=== PATIENT | female | born 1945 | race Caucasian/White ===

== ENCOUNTER 2018-06-26 15:15 | Emergency (ER) | payer MEDICARE, BC ==
[~2018-06-26] VITALS: Ht 152.4 cm; Wt 59.0 kg
--- NOTE | 2018-06-26 15:39 | PHYS DOC ---
Past Medical History Alcohol Use: None Drug Use: None Adult General Chief Complaint Chief Complaint: ANIMAL BITE HPI HPI Patient is a 72 year old female who presents with dog bite to the face. This happened within an hour prior to arrival. Dog was the neighbors dog. Uncertain as to dog's vaccine status. Animal control has been notified. Patient reports her last tetanus vaccine was greater than 5 years ago. She reports mild to moderate pain.[] Review of Systems Review of Systems Constitutional: Denies fever or chills [] Eyes: Denies change in visual acuity, redness, or eye pain [] HENT: Denies nasal congestion or sore throat [] Respiratory: Denies cough or shortness of breath [] Cardiovascular: No chest pain or palpitations[] GI: Denies abdominal pain, nausea, vomiting, bloody stools or diarrhea [] : Denies dysuria or hematuria [] Musculoskeletal: Denies back pain or joint pain [] Integument: Denies rash or skin lesions [] Neurologic: Denies headache, focal weakness or sensory changes [] Endocrine: Denies polyuria or polydipsia [] All other systems were reviewed and found to be within normal limits, except as documented in this note. Current Medications Current Medications Current Medications Medications (Trade) Dose Ordered Sig/Adrienne Start Time Stop Time Status Last Admin Dose Admin Ampicillin Sodium/ Sulbactam Sodium 1.5 gm/Sodium Chloride 50 ml @ 100 mls/hr 1X ONCE 06/26/18 15:45 06/26/18 16:14 DC 06/26/18 15:35 100 MLS/HR Diphtheria/ Tetanus/Acell Pertussis (Boostrix) 0.5 ml ONCE ONCE 06/26/18 15:45 06/26/18 15:46 DC 06/26/18 16:02 0.5 ML Morphine Sulfate (Morphine Sulfate) 2 mg 1X ONCE 06/26/18 15:45 06/26/18 15:46 DC 06/26/18 15:49 2 MG Ondansetron HCl (Zofran) 4 mg 1X ONCE 06/26/18 15:45 06/26/18 15:46 DC 06/26/18 15:53 4 MG Allergies Allergies Allergies Coded Allergies Type Severity Reaction Last Updated Verified Sulfa (Sulfonamide Antibiotics) Allergy Intermediate 06/26/18 Yes phenobarbital Allergy Intermediate 06/26/18 Yes Physical Exam Physical Exam Constitutional: Well developed, well nourished, mild distress, non-toxic appearance. [] HENT: Patient's right face has a complex laceration along the cheek region with exposed fat and possibly exposed salivary gland. Second laceration/wound to the right lateral brow line region of her for head. Bilateral external ears normal, oropharynx moist, no oral exudates, nose normal. [] Eyes: PERRLA, EOMI, conjunctiva normal, no discharge. [] Neck: Normal range of motion, no tenderness, supple, no stridor. [] Cardiovascular:Heart rate regular rhythm, no murmur [] Lungs & Thorax: Bilateral breath sounds clear to auscultation [] Abdomen: Bowel sounds normal, soft, no tenderness, no masses, no pulsatile masses. [] Skin: Warm, dry, no erythema, no rash. [] Back: No tenderness, no CVA tenderness. [] Extremities: No tenderness, no cyanosis, no clubbing, ROM intact, no edema. [] Neurologic: Alert and oriented X 3, normal motor function, normal sensory function, no focal deficits noted. [] Psychologic: Affect normal, judgement normal, mood normal. [] Current Patient Data Vital Signs Vital Signs Date Time Temp Pulse Resp B/P (MAP) Pulse Ox O2 Delivery O2 Flow Rate FiO2 06/26/18 15:49 20 97 Nasal Cannula 2.0 06/26/18 15:24 98.7 76 180/77 (111) 98.7 Lab Values Laboratory Tests Test 06/26/18 15:36 White Blood Count 6.0 x10^3/uL (4.0-11.0) Red Blood Count 3.14 x10^6/uL (3.50-5.40) L Hemoglobin 8.2 g/dL (12.0-15.5) L Hematocrit 25.9 % (36.0-47.0) L Mean Corpuscular Volume 83 fL (79-100) Mean Corpuscular Hemoglobin 26 pg (25-35) Mean Corpuscular Hemoglobin Concent 32 g/dL (31-37) Red Cell Distribution Width 19.0 % (11.5-14.5) H Platelet Count 655 x10^3/uL (140-400) H Neutrophils (%) (Auto) 71 % (31-73) Lymphocytes (%) (Auto) 14 % (24-48) L Monocytes (%) (Auto) 9 % (0-9) Eosinophils (%) (Auto) 5 % (0-3) H Basophils (%) (Auto) 1 % (0-3) Neutrophils # (Auto) 4.3 x10^3uL (1.8-7.7) Lymphocytes # (Auto) 0.8 x10^3/uL (1.0-4.8) L Monocytes # (Auto) 0.5 x10^3/uL (0.0-1.1) Eosinophils # (Auto) 0.3 x10^3/uL (0.0-0.7) Basophils # (Auto) 0.1 x10^3/uL (0.0-0.2) Prothrombin Time 12.6 SEC (11.7-14.0) Prothrombin Time INR 1.0 (0.8-1.1) PTT 31 SEC (24-38) Sodium Level 141 mmol/L (136-145) Potassium Level 4.5 mmol/L (3.5-5.1) Chloride Level 106 mmol/L (98-107) Carbon Dioxide Level 27 mmol/L (21-32) Anion Gap 8 (6-14) Blood Urea Nitrogen 12 mg/dL (7-20) Creatinine 0.7 mg/dL (0.6-1.0) Estimated GFR (Cockcroft-Gault) 82.0 BUN/Creatinine Ratio 17 (6-20) Glucose Level 149 mg/dL (70-99) H Calcium Level 9.4 mg/dL (8.5-10.1) Total Bilirubin 0.3 mg/dL (0.2-1.0) Aspartate Amino Transferase (AST) 13 U/L (15-37) L Alanine Aminotransferase (ALT) 13 U/L (14-59) L Alkaline Phosphatase 112 U/L (46-116) Total Protein 6.5 g/dL (6.4-8.2) Albumin 3.2 g/dL (3.4-5.0) L Albumin/Globulin Ratio 1.0 (1.0-1.7) Ethyl Alcohol Level < 0 mg/dL (0-10) L Laboratory Tests 06/26/18 15:36 Laboratory Tests 06/26/18 15:36 EKG EKG [] Radiology/Procedures Radiology/Procedures [] Course & Med Decision Making Course & Med Decision Making Pertinent Labs and Imaging studies reviewed. (See chart for details) Medical decision making: This is a complex laceration with no ENT or plastics capability available at [facility]. [facility] was contacted Dr. Minaya graciously accepted the patient for the plastics service however plastic service was not operations dispatcher so Dr. Wallace was contacted from the ENT service and he accepted the patient as well.[] Dragon Disclaimer Dragon Disclaimer This electronic medical record was generated, in whole or in part, using a voice recognition dictation system. Departure Departure Impression: Primary Impression: Dog bite Disposition: 05 TRANSFER OTHER Condition: STABLE Problem Qualifiers Primary Impression: Dog bite Encounter type: initial encounter Qualified Codes: W54.0XXA - Bitten by dog , initial encounter KANDACE LE DO Jun 26, 2018 15:39
[2018-06-26] MEDS ORDERED: ONDANSETRON PF 4 MG/2 ML VIAL. IV ONE (15:45)
[2018-06-26] MEDS ORDERED: DIPHTH,PERTUSS(ACELL),TET TOX 0.5 ML DISP.SYRIN. VAX IM ONE (15:45)
[2018-06-26] MEDS ORDERED: MORPHINE SULFATE 4 MG/ML VIAL. IV ONE (15:45)
[2018-06-26] MEDS ORDERED: AMPICILLIN/SULBACTAM 1.5 GM in IV NORMAL SALINE 50ML 50 ML IV ONE (15:45)
[2018-06-26 16:22] LABS: BASO # 0.1 x10^3/uL (0.0-0.2); BASO % 1 % (0-3); EOS # 0.3 x10^3/uL (0.0-0.7); EOS % 5 % (0-3); HEMATOCRIT 25.9 % (36.0-47.0); HEMOGLOBIN 8.2 g/dL (12.0-15.5); LYMPH # 0.8 x10^3/uL (1.0-4.8); LYMPH % 14 % (24-48); MEAN CORPUSCULAR HEMOGLOBIN 26 pg (25-35); MEAN CORPUSCULAR HGB CONC 32 g/dL (31-37); MEAN CORPUSCULAR VOLUME 83 fL (79-100); MONO # 0.5 x10^3/uL (0.0-1.1); MONO % 9 % (0-9); NEUT # 4.3 x10^3uL (1.8-7.7); NEUT % 71 % (31-73); PLATELET COUNT 655 x10^3/uL (140-400); RED BLOOD COUNT 3.14 x10^6/uL (3.50-5.40)
[2018-06-26 16:33] LABS: CALCIUM 9.4 mg/dL (8.5-10.1); CREATININE 0.7 mg/dL (0.6-1.0); POTASSIUM 4.5 mmol/L (3.5-5.1)
[2018-06-26 16:35] LABS: PROTHROMBIN TIME PATIENT 12.6 SEC (11.7-14.0)
[2018-06-26 16:39] LABS: ALBUMIN 3.2 g/dL (3.4-5.0); TOTAL BILIRUBIN 0.3 mg/dL (0.2-1.0); TOTAL PROTEIN 6.5 g/dL (6.4-8.2)
[2018-06-26] MEDS: MORPHINE SULFATE 4 MG/ML VIAL. IV PRN ×2 (17:15→17:56)
[2018-06-26 18:16] VITALS: BP 141/59
== END 2018-06-26 18:23 | disposition short-term general hospital (02) ==
LOC: ER 15:15
DX: S01.451A Open bite of right cheek and temporomandibular area, initial encounter (principal); S01.151A Open bite of right eyelid and periocular area, initial encounter; Z88.2 Allergy status to sulfonamides; Z88.8 Allergy status to other drugs, medicaments and biological substances; W54.0XXA Bitten by dog, initial encounter; Y93.89 Activity, other specified; Y92.89 Other specified places as the place of occurrence of the external cause; Y99.8 Other external cause status
CPT/HCPCS: 36415; 80053; 83605; 84484; 85025; 85610; 85730; 90471; 90715; 96365; 96375; 96376; 99285; G0480; J0295; J2270; J2405

== ENCOUNTER → 2020-04-08 | Outpatient (CLI) | payer MEDICARE, BC ==
[~2020-04-08] MED LIST: ALBU2.5V8 IH; ASPI-886 PO; BUPIVACAINE MPF 0.5% 10 ML VIAL. INT ART ONE; CRESTOR40 MG PO; CYCL10TA2 PO; ESTR0.45 PO; GABA300C18 PO; HYDR25TA PO; IOHEXOL 300 MG/ML 50 ML VIAL. INT ART ONE; IRBE75TA2 PO; LIDOCAINE 1% Multi-Dose 20 ML VIAL. ID ONE; METO25TA4 PO; NITR0.4T22 SL; PROP15DR EACHEYE; TRAM1TAB4 PO; methylPREDNISolone ACETATE 40 MG/ML VIAL. INT ART ONE
--- NOTE | 2020-04-08 16:07 | KCIC ---
EXAM: Left hip joint injection WITH Fluoroscopic guidance DATE: 04/08/2020 12:00 AM CLINICAL HISTORY: Bilateral hip pain for 3 months COMPARISON: None pertinent TECHNIQUE: The patient was informed of the indications and alternatives for this procedure as well as risks and benefits. No immediate contraindication identified. The patient provided informed, written consent. Laterality was confirmed by the entire team following a time out. Following initial left hip localization, a suitable area was sterilely prepped and draped. Local anesthesia was administered with 1% xylocaine. With intermittent fluoroscopic observation, a 22-gauge spinal needle was advanced into the left hip sheath/capsule with confirmation of intra-synovial position with infusion of less than 1 cc iodinated contrast. Subsequent infusion solution containing 4 mL lidocaine 1%, 4 mL bupivacaine 0.5%, and Depo-Medrol 80 mg. Hemostasis with local pressure. Local clinical exam negative for immediate complication. Patient informed re local potential signs or symptoms that may indicate need to return to ER/Ordering physician for further evaluation. Patient informed re precautionary measures after intra-synovial injection of anesthetic. Patient informed re potential for short term increase local symptomatology due to steroid flare. Patient expressed understanding. Performing Physicians: Dr. Gin Miller Blood Loss: 0 cc Pre-procedural Pain Scale: 10 Post-procedural Pain Scale: 2 Total Fluoroscopy time: 5 seconds Total spot images taken: 0 IMPRESSION: Successful intra-synovial injection left hip joint with steroid and anesthetic per clinical request. EXAM: Lateral view right hip DATE: 04/08/2020 12:00 AM INDICATION: Reason: Evaluate for Rt hip fracture. Pain 3 months. / Spl. Instructions: / History: COMPARISON: No Prior FINDINGS: Initial fluoroscopic imaging of the right hip was performed prior to right hip joint injection, and a subcapital right femoral neck fracture with suspected. Therefore additional prominent lateral view of the right hip was obtained which confirm these findings. Right hip joint osteoarthritis. IMPRESSION: Subcapital right femoral neck fracture. Findings of right hip fracture discussed with Dr. Stafford who was covering for Dr. Ulloa and decision was made to not perform right hip joint steroid injection at this time. The patient will schedule an appointment with orthopedics for further evaluation of the right hip. Electronically signed by: Honorio Miller MD (04/08/2020 4:04 PM) [id number]
== END | disposition home or self-care (01) ==
LOC: KCIC 13:43
PROVIDERS: ATTEND Orthopaedic Surgery Sports Medicine
DX: M25.552 Pain in left hip (principal); M16.11 Unilateral primary osteoarthritis, right hip; S72.011A Unspecified intracapsular fracture of right femur, initial encounter for closed fracture; X58.XXXA Exposure to other specified factors, initial encounter; Y93.89 Activity, other specified; Y92.89 Other specified places as the place of occurrence of the external cause; Y99.8 Other external cause status; Z88.1 Allergy status to other antibiotic agents; Z88.8 Allergy status to other drugs, medicaments and biological substances
CPT/HCPCS: 20610; 73501; 77002; J1030; J3490; Q9967